=== PATIENT | male | born 1955 | race Caucasian/White ===

== ENCOUNTER 2017-09-02 16:04 | Emergency (ER) | payer BC ==
[~2017-09-02] VITALS: Ht 170.2 cm; Wt 137.3 kg
[~2017-09-02 16:04] MED LIST: ACTOS 45MG45 MG/TAB; GLUMETZA500 MG; HYZAAR 12.5 MG-1 TAB; LASIX 20MG TABL20 MG; MEDROL 4MG DOSPA4 MG PO; MOBIC15 MG; NORCO 325 MG-51 TAB; TOPROL XL 25MG25 MG; ZOCOR 40MG40 MG
[2017-09-02 16:05] VITALS: TEMP 98
[2017-09-02] MEDS ORDERED: TRULICITY0.75 MG/0. SQ (16:13)
[2017-09-02] MEDS ORDERED: CYANOCOBAL1000 MCG/1 IM (16:14)
[2017-09-02 17:42] LABS: BASO % 0.2 % (0.0-2.0); EOS % 0.3 % (0-4.0); GRAN # 7.2 (1.4-6.5); GRAN % 82.9 % (42.2-75.2); LYMPH # 0.6 (1.2-3.4); LYMPH % 6.8 % (20.0-51.0); MEAN CELL VOLUME 90 fl (80.0-100.0); MEAN CORPUSCULAR HGB CONC 33 g/dl (33.0-37.0); MEAN PLATELET VOLUME 10.6 fl (7.4-10.4); MONO # 0.8 (0.1-0.6); MONO % 9.2 % (1.7-9.3); PLATELET COUNT 171 K/mm3 (130-400); RED BLOOD COUNT 3.52 M/mm3 (4.20-5.60); REDCELL DISTRIBUTION WIDTH-CV 14.3 % (11.5-14.5)
[2017-09-02 17:51] LABS: HEMATOCRIT 31.8 % (42.0-52.0); HEMOGLOBIN 10.4 g/dl (13.5-18.0); MEAN CORPUSCULAR HEMOGLOBIN 30 pg (27.0-31.0)
[2017-09-02 17:55] LABS: ALBUMIN 3.9 gm/dL (3.5-5.0); BILIRUBIN,TOTAL 0.5 mg/dL (0.0-1.0); C-REACTIVE PROTEIN 6.8 mg/dL (0.0-0.9); CALCIUM 8.5 mg/dL (8.4-10.2); CREATININE, serum 1.09 mg/dL (0.66-1.25); POTASSIUM 3.6 mmol/L (3.4-5.0); TOTAL PROTEIN 7.1 gm/dL (6.4-8.2)
[2017-09-02 18:09] LABS: ERYTHROCYTE SEDIMENTATION RATE 71 mm/hr (0-30)
[2017-09-02 18:25] LABS: COLLECTION METHOD CLEAN CATCH
[2017-09-02 18:30] LABS: MUCOUS Present /lpf; PH 5 (5-8); SQUAMOUS EPITHELIAL 0-2 /hpf; URINE APPEARANCE Clear; URINE BACTERIA None Seen /hpf; URINE BILIRUBIN Negative (NEGATIVE); URINE BLOOD Negative (NEGATIVE); URINE COLOR Yellow; URINE GLUCOSE Negative (NEGATIVE); URINE KETONE Negative (NEGATIVE); URINE LEUKOCYTE ESTERASE Negative (NEGATIVE); URINE NITRATE Negative (NEGATIVE); URINE PROTEIN(semi-quant) 1+ (NEGATIVE); URINE UROBILINOGEN Negative (NEGATIVE)
[2017-09-02 20:14] VITALS: BP 150/74; PULSE 70
== END 2017-09-02 20:14 | disposition short-term general hospital (02) ==
LOC: COL.ER 16:04
PROVIDERS: Emergency Medicine
DX: M62.81 Muscle weakness (generalized) (principal); M48.00 Spinal stenosis, site unspecified; E11.9 Type 2 diabetes mellitus without complications; Z98.890 Other specified postprocedural states; Z79.84 Long term (current) use of oral hypoglycemic drugs
CPT/HCPCS: J2930; J7030

== ENCOUNTER 2017-09-07 10:11 | Inpatient (IN) | payer BC ==
[~2017-09-07] VITALS: Ht 170.2 cm; Wt 127.9 kg
[~2017-09-07 10:11] MED LIST changes: +CYANOCOBAL1000 MCG/1 IM; -HYZAAR 12.5 MG-1 TAB; +HYZAAR 12.5 MG-1 TAB PO; -LASIX 20MG TABL20 MG; +LASIX 20MG TABL20 MG PO; -MOBIC15 MG; +MOBIC15 MG PO; -TOPROL XL 25MG25 MG; +TOPROL XL 25MG25 MG PO; +TRULICITY0.75 MG/0. SQ; -ZOCOR 40MG40 MG; +ZOCOR 40MG40 MG PO
[2017-09-07] MEDS ORDERED: NOVOLOG 100U100 U/M1 SQ (14:54)
[2017-09-07 15:11] VITALS: BP 156/70; PULSE 60; TEMP 97.4
[2017-09-07 18:21] VITALS: BP 141/62; PULSE 62; TEMP 98
[2017-09-08 06:00] VITALS: BP 137/57; PULSE 72; TEMP 98.2
[2017-09-08 16:24] VITALS: BP 140/58; PULSE 68; TEMP 97.8
[2017-09-09 06:50] VITALS: BP 137/56; PULSE 66; TEMP 98.4
[2017-09-09 16:25] VITALS: BP 140/59; PULSE 59; TEMP 97.5
[2017-09-10 04:45] VITALS: BP 136/58; PULSE 62; TEMP 98.5
[2017-09-10 15:57] VITALS: BP 124/57; PULSE 65; TEMP 98.2
[2017-09-11 06:31] VITALS: BP 140/54; PULSE 67; TEMP 98.4
[2017-09-11 07:52] LABS: BASO % 0.4 % (0.0-2.0); EOS # 0.1 (0.0-0.7); EOS % 2.5 % (0-4.0); GRAN # 3.6 (1.4-6.5); LYMPH % 18.4 % (20.0-51.0); MEAN CELL VOLUME 88 fl (80.0-100.0); MEAN CORPUSCULAR HGB CONC 33 g/dl (33.0-37.0); MEAN PLATELET VOLUME 9.6 fl (7.4-10.4); MONO # 0.5 (0.1-0.6); MONO % 10.1 % (1.7-9.3); PLATELET COUNT 272 K/mm3 (130-400); RED BLOOD COUNT 3.86 M/mm3 (4.20-5.60); REDCELL DISTRIBUTION WIDTH-CV 13.9 % (11.5-14.5)
[2017-09-11 08:12] LABS: HEMOGLOBIN 11.2 g/dl (13.5-18.0); MEAN CORPUSCULAR HEMOGLOBIN 29 pg (27.0-31.0)
[2017-09-11 08:38] LABS: C-REACTIVE PROTEIN 2.7 mg/dL (0.0-0.9); CALCIUM 9.1 mg/dL (8.4-10.2); CREATININE, serum 1.18 mg/dL (0.66-1.25); POTASSIUM 4.6 mmol/L (3.4-5.0)
[2017-09-11 17:15] VITALS: BP 145/62; PULSE 63
[2017-09-11 19:15] VITALS: TEMP 98.2
[2017-09-12 05:18] VITALS: BP 141/60; PULSE 74; TEMP 98
[2017-09-12 14:33] VITALS: BP 126/55; PULSE 70; TEMP 98.1
[2017-09-13 06:34] VITALS: BP 129/59; PULSE 70; TEMP 98.1
[2017-09-13 15:40] VITALS: BP 129/52; PULSE 66; TEMP 97.8
[2017-09-14 05:44] VITALS: BP 130/57; PULSE 56; TEMP 98.3
[2017-09-14 15:04] VITALS: BP 127/58; PULSE 71; TEMP 98.3
[2017-09-15 06:00] VITALS: BP 142/60; PULSE 65; TEMP 97.7
[2017-09-15 15:09] VITALS: BP 123/44; PULSE 64; TEMP 97.2
[2017-09-16 06:30] VITALS: BP 121/63; PULSE 70; TEMP 98.5
[2017-09-16 15:21] VITALS: BP 120/53; PULSE 64; TEMP 97.2
[2017-09-17 05:19] VITALS: BP 129/50; PULSE 73; TEMP 98.4
[2017-09-17 15:28] VITALS: BP 127/50; PULSE 78; TEMP 97.6
[2017-09-18 06:30] VITALS: BP 132/56; PULSE 69; TEMP 98.6
[2017-09-18 12:07] VITALS: TEMP 98
[2017-09-18 17:39] VITALS: BP 110/51; PULSE 69; TEMP 98.3
[2017-09-19 05:47] VITALS: BP 135/54; PULSE 71; TEMP 98.5
[2017-09-19 14:54] VITALS: BP 125/55; PULSE 77; TEMP 98.6
[2017-09-20 04:20] VITALS: BP 133/52; PULSE 70; TEMP 98.9
[2017-09-20 15:53] VITALS: BP 125/58; PULSE 71; TEMP 98.9
[2017-09-21 06:00] VITALS: BP 132/56; PULSE 74; TEMP 98
[2017-09-21] MEDS ORDERED: FLONASE NASAL S16 GM NS (11:24)
[2017-09-21] MEDS ORDERED: MUCINEX1200 MG PO (11:24)
[2017-09-21] MEDS ORDERED: DEBROX OT (11:24)
== END 2017-09-21 15:25 | disposition home health service (06) | DRG 74 ==
PROVIDERS: Internal Medicine
DX: G60.8 Other hereditary and idiopathic neuropathies (principal); Z68.42 Body mass index [BMI] 45.0-49.9, adult; E11.42 Type 2 diabetes mellitus with diabetic polyneuropathy; E66.01 Morbid (severe) obesity due to excess calories; M48.061 Spinal stenosis, lumbar region without neurogenic claudication; I10 Essential (primary) hypertension; Z91.81 History of falling; Z79.4 Long term (current) use of insulin
CPT/HCPCS: 99222-AI; 99232-AI; 99239; J1650; J1815

== ENCOUNTER 2017-12-28 13:00 | Outpatient (RCR) | payer BC ==
[~2017-12-28 13:00] MED LIST changes: +DEBROX OT; +FLONASE NASAL S16 GM NS; +MUCINEX1200 MG PO; +NOVOLOG 100U100 U/M1 SQ
== END 2017-12-30 | disposition home or self-care (01) ==
LOC: WSPT
DX: M48.02 Spinal stenosis, cervical region (principal); M48.061 Spinal stenosis, lumbar region without neurogenic claudication; G60.8 Other hereditary and idiopathic neuropathies; E11.9 Type 2 diabetes mellitus without complications; Z91.81 History of falling; E66.01 Morbid (severe) obesity due to excess calories; Z68.41 Body mass index [BMI] 40.0-44.9, adult

== ENCOUNTER 2018-03-12 14:30 | Outpatient (RCR) | payer BC | END 2018-05-27 | disposition home or self-care (01) | LOC: MKS.ESL.PT | DX: E11.42 Type 2 diabetes mellitus with diabetic polyneuropathy (principal) ==

== ENCOUNTER 2018-06-24 16:15 | Outpatient (RCR) | payer BC | END 2018-06-30 | disposition home or self-care (01) | LOC: WSPT | DX: E11.42 Type 2 diabetes mellitus with diabetic polyneuropathy (principal); E11.44 Type 2 diabetes mellitus with diabetic amyotrophy ==

== ENCOUNTER 2018-07-08 16:15 | Outpatient (RCR) | payer BC | END 2018-08-28 14:12 | disposition home or self-care (01) | LOC: WSPT 16:15 | DX: E11.44 Type 2 diabetes mellitus with diabetic amyotrophy (principal) ==

== ENCOUNTER 2019-02-11 08:00 | Outpatient (RCR) | payer BC | END 2019-04-17 09:09 | disposition home or self-care (01) | LOC: WSPT 08:00 | DX: M48.062 Spinal stenosis, lumbar region with neurogenic claudication (principal); E11.44 Type 2 diabetes mellitus with diabetic amyotrophy; G56.03 Carpal tunnel syndrome, bilateral upper limbs; M51.16 Intervertebral disc disorders with radiculopathy, lumbar region ==

== ENCOUNTER → 2019-02-11 | Outpatient (RCR) | payer BC | END | disposition still patient (30) | LOC: WSPT → WSC 11-13 12:44 → WSPT 11-15 08:00 → WSC 01-07 16:00 → WSPT 01-10 08:00 | DX: M48.062 Spinal stenosis, lumbar region with neurogenic claudication (principal); M51.16 Intervertebral disc disorders with radiculopathy, lumbar region; G56.03 Carpal tunnel syndrome, bilateral upper limbs; E11.44 Type 2 diabetes mellitus with diabetic amyotrophy; I10 Essential (primary) hypertension ==

== ENCOUNTER → 2021-09-13 | Outpatient (REF) | LOC: COL.CARD 13:55 | DX: Z01.810 Encounter for preprocedural cardiovascular examination (principal) ==